=== PATIENT | female | born 1995 | race Caucasian/White ===

== ENCOUNTER 2022-10-20 10:45 | Inpatient (IN) | payer OTHER, SELFPAY ==
[2022-10-20] VITALS (62 sets, daily range): BP systolic 95–121; BP diastolic 59–84; PULSE 67–166; TEMP 36.3–37.5; O2SAT 87–100; BMI 38.6
[2022-10-20 11:07] LABS: ROM Internal Control Test YES-OK TO RESULT pt. (Internal QC); ROM Patient Test Negative (Negative); Record Kit Lot#, ROM+ K1374
[2022-10-20] MEDS: Lactated Ringers 1,000 ML 50 ML IV (11:30)
[2022-10-20 12:04] LABS: Absolute Lymphocyte Count 1.68 X10^3/uL (0.83-4.51); Absolute Neutrophil Count 6.4 X10^3/uL (2.0-7.7); Basophil# 0.02 X10^3/uL; Basophil% 0.2 % (0-1); Hematocrit 34.5 % (37-47); Hemoglobin 11.2 g/dL (12.0-15.0); Lymphocyte # 1.68 X10^3/ul (0.83-4.51); Lymphocyte % 19.5 % (19-41); Mean Corp Hgb Conc 32.5 g/dL (32-36); Mean Corpuscular Hgb 27.1 pg (27.0-32.0); Mean Corpuscular Volume 83.5 fL (81-99); Mean Platelet Vol. 10.3 fl (6.2-12.0); Monocyte# 0.51 X10^3/uL; Monocyte% 5.9 % (0-10); NRBC Flagged by Analyzer 0 % (0-5); Neutrophil # 6.36 X10^3/uL (2.7-7.7); Neutrophil % 73.9 % (47-70); Platelet Count 204 K/mm3 (150-450); RBC Distribution Width CV 13.4 % (11.6-14.6); RBC Distribution Width SD 40.7 fl (35.1-43.9); Red Blood Count 4.13 M/mm3 (4.2-5.4); White Blood Count 8.6 K/mm3 (4.4-11.0)
[2022-10-20 12:41] LABS: Syphilis Antibodies Non-reactive
[2022-10-20 13:22] LABS: HIV - WCH Non-Reactive (Nonreactive); Hepatitis C Antibody Non-Reactive (Nonreactive)
[2022-10-20] MEDS: LACTATED RINGERS 500 ML 999 ML IV (13:45)
[2022-10-20] MEDS: fentaNYL-bupivacaine (epidural) 100 ML BAG EPIDURAL ×2 (15:08→19:41)
--- NOTE | 2022-10-20 16:51 | HP.PCM.OB_ITS ---
History and Physical Date of Admission: 10/20/22 HPI: 27-year-old G1, P0 at 40/0 weeks, MAGDA 10/20/2022 by first trimester ultrasound, admitted in labor. Reports regular contractions. Denies leaking of fluid, vaginal bleeding. Reports movement. Denies headache or vision changes, chest pain or shortness of breath, nausea or vomiting, diarrhea constipation, fevers or chills. complicated by: Class II obesity, rubella nonimmune ADDICTION THERAPIST history: G1 current Medical history: Class II obesity Surgical history: Denies Medications: Iron and vitamin Family history: Noncontributory Allergies: No known drug allergies Social history: Former smoker, denies current tobacco use, alcohol, drug use Review system: Negative otherwise stated above Physical exam: Vitals: General: In no acute distress, now comfortable with epidural HEENT: Normal cephalic/atraumatic Cardiorespiratory: No increased effort Abdomen: Soft, nontender, gravid Cervical exam: 6?7/80/-2, AROM blood-tinged fluid Extremities: Minimal edema Neurologic: No focal deficits, cranial nerves II through XII grossly intact Musculoskeletal moves all extremities equally heart rate:125/mod susan/+accel/no decel [place]: q2-5 Assessment/Plan: 27-year-old G1, P0 at 40/0 weeks, MAGDA 10/20/2022 by first trimester ultrasound, admitted in labor. complicated by: Class II obesity, rubella nonimmune. ?Admit to labor ? Artificial rupture membranes complete. ? Rubella nonimmune. For immunization .
[2022-10-20] MEDS: Lactated Ringers 1,000 ML 200 ML IV (19:39)
[2022-10-20] MEDS: Oxytocin 10 UNITS/ML Vial IM (20:15)
[2022-10-20] MEDS: Oxytocin 15 Units/NS 250ml 15 UNITS/250 ML IV.SOLN 83 UNITS IV (20:15)
--- NOTE | 2022-10-20 20:36 | EX.PCM.OBRPT ---
Maternal Data Information Final MAGDA: 10/20/22 Final MAGDA Source: US <20 weeks Vaginal Delivery Operative Information Date of Procedure: 10/20/22 Pre-Operative Diagnosis: Tiwari intrauterine at term Post-Operative Diagnosis: Tiwari intrauterine at term Surgery / Procedure Performed: Spontaneous Vaginal Delivery Type of Anesthesia: Epidural Estimated Blood Loss: 500cc Findings Description of Procedure: Spontaneous vaginal delivery of viable infant male. No nuchal cord. Baby to mom. Cord clamped and cut. Spontaneous delivery of placenta. Portion of membrane removed on manual extraction and with ring forceps. Confirmed intact placenta. No further membranes or clots noted on bimanual exam. Right labial laceration repaired in the usual fashion. Second-degree laceration repaired in the usual fashion. Hemostatic. A Gender: Male (1 minute): 8 (5 minute): 9 Delayed Cord Clamping: Yes Complication Complications: None
[2022-10-20] MEDS: Lactated Ringers 500 ML IV.SOLN. 1000 ML IV (22:33)
[2022-10-20 23:12] LABS: Absolute Lymphocyte Count 1.08 X10^3/uL (0.83-4.51); Absolute Neutrophil Count 13.7 X10^3/uL (2.0-7.7); Basophil# 0.02 X10^3/uL; Basophil% 0.1 % (0-1); Hematocrit 29.8 % (37-47); Hemoglobin 9.4 g/dL (12.0-15.0); Lymphocyte # 1.08 X10^3/ul (0.83-4.51); Lymphocyte % 6.8 % (19-41); Mean Corp Hgb Conc 31.5 g/dL (32-36); Mean Corpuscular Hgb 26.7 pg (27.0-32.0); Mean Corpuscular Volume 84.7 fL (81-99); Mean Platelet Vol. 9.9 fl (6.2-12.0); Monocyte# 0.96 X10^3/uL; Monocyte% 6.1 % (0-10); NRBC Flagged by Analyzer 0 % (0-5); Neutrophil # 13.69 X10^3/uL (2.7-7.7); Neutrophil % 86.4 % (47-70); Platelet Count 202 K/mm3 (150-450); RBC Distribution Width CV 13.3 % (11.6-14.6); RBC Distribution Width SD 40.7 fl (35.1-43.9); Red Blood Count 3.52 M/mm3 (4.2-5.4); White Blood Count 15.8 K/mm3 (4.4-11.0)
--- NOTE | 2022-10-20 23:48 | NURSING ---
report given to chart RN. that RN to assume care of couplet at this time.
[2022-10-21] VITALS (8 sets, daily range): BP systolic 93–116; BP diastolic 56–73; PULSE 72–125; RESP 14–18; TEMP 36.7–37.1; O2SAT 97–99
[2022-10-21] MEDS: Acetaminophen 500 MG Tablet 1000 MG PO ×3 (03:28→20:59)
--- NOTE | 2022-10-21 12:24 | PN.OBGYN_ITS ---
Subjective Subjective Patient doing well. Lochia minimal. Breast-feeding. Discussed supportive care for perineal laceration. Objective Data Objective Data Vital Signs: Vital Signs Temp Pulse Resp BP Pulse Ox O2 Del Method 98.2 F 96 16 110/73 99 Room Air 10/21/22 11:35 10/21/22 11:35 10/21/22 11:35 10/21/22 11:35 10/21/22 11:35 10/21/22 11:35 Oxygen Delivery Method Room Air Weight: 105.324 kg Body Mass Index (BMI) 38.6 Intake & Output: Intake and Output for Last 24 Hours 10/19/22 10/20/22 10/21/22 23:59 23:59 23:59 Intake Total 2830.00 / 2830.00 Output Total 1150 / 1150 1225 / 1225 Balance 1680.00 / 1680.00 -1225 / -1225 Lab / Micro Data Attestation: I reviewed the patient's lab results. 10/20/22 22:55 Labs: Laboratory Results - last 24 hr 10/20/22 11:30: Syphilis Total Ab Non-reactive, Hepatitis C Antibody Cancelled 10/20/22 11:30: Hepatitis C Antibody Non-Reactive, Hep C Antibody RIBA Cancelled, Hep C RIBA Interpret Cancelled, Hep C Ab Comment Cancelled, HIV 1&2 Antibody Non-Reactive, Blood Type A POSITIVE, Antibody Screen NEGATIVE 10/20/22 22:55: WBC 15.8 H, RBC 3.52 L, Hgb 9.4 L, Hct 29.8 L, MCV 84.7, MCH 26.7 L, MCHC 31.5 L, RDW Std Deviation 40.7, RDW Coeff of Georgette 13.3, Plt Count 202, MPV 9.9, Immature Gran % (Auto) 0.600, Neut % (Auto) 86.4 H, Lymph % (Auto) 6.8 L, [place] % (Auto) 6.1, Eos % (Auto) 0.0, Baso % (Auto) 0.1, Absolute Neuts (auto) 13.7 H, Absolute Lymphs (auto) 1.08, Nucleated RBC % 0 Physical Exam Const alert, oriented x3 and no apparent distress HEENT normocephalic Head and Scalp: atraumatic Neck full ROM Resp normal respiratory effort Cardio regular rate GI normal to inspection, nondistended, normoactive bowel sounds GI Narrative: Uterus 2 cm below umbilicus Back/Spine normal ROM Extremity normal to inspection Extremity Narrative: Minimal pedal edema Neuro no focal motor deficits and no sensory deficits noted Psych mental status grossly normal and affect normal Assessment & Plan (1) Vaginal delivery: PLAN: day 1 status post . Patient had tachycardia last evening after delivery, has resolved. CBC showing acute blood loss anemia secondary to delivery. Can iron supplement on home-going. Breast-feeding. Plan for discharge home tomorrow.
[2022-10-21] MEDS: Senna/Docusate Sodium 1 Tablet PO (21:10)
[2022-10-22 02:32] VITALS: BP 95/57; PULSE 87; RESP 18; TEMP 36.8
[2022-10-22] MEDS: SimETHICONE 80 MG Chewable Tablet PO (05:33)
--- NOTE | 2022-10-22 07:16 | DS.PCM_ITS ---
Discharge Summary Date of Admission: 10/20/22 Date of Discharge: 10/22/22 Summary: Patient arrived on 10/20/2022 in labor and subsequently delivered vaginally on 10/20/2022. Overall routine recovery and discharged home on 10/22/2022 Meaningful Use Info Meaningful Use Diagnoses (Choose all that apply): None applicable Discharge Plan Admission Admit Date/Time: 10/20/22 10:45 Primary Reason for Your Visit: Labor Attending Provider: Vandana Andrade Primary Care Provider: Vivienne Espinoza Primary Instructions Additional Instructions / Restrictions: Regular diet. Okay to shower. Weightbearing as tolerated. No intercourse for 6 to 8 weeks. Call if fevers, chills, chest pain, shortness of breath. Follow- up in 3 to 4 weeks Discharge Orders/Prescriptions Prescriptions: No Action ferrous sulfate 325 mg (65 mg iron) tablet 325 mg PO DAILY PNV cmb#95-ferrous fumarate-FA [ Multivitamins] 28 mg iron- 800 mcg tablet 1 tab PO DAILY omeprazole 20 mg capsule,delayed release(DR/EC) 20 mg PO DAILY Referrals / Follow Up: Care Physician,No Primary [Primary Care Provider] - Disposition Disposition (needs filled in before D/C Order can be placed): Home, Self Care
--- NOTE | 2022-10-22 07:17 | PCM.PN.OB ---
Subjective Subjective No overnight complaints Objective Data Objective Data Vital Signs: Vital Signs Temp Pulse Resp BP Pulse Ox O2 Del Method 98.3 F 87 18 95/57 L 97 Room Air 10/22/22 02:32 10/22/22 02:32 10/22/22 02:32 10/22/22 02:32 10/21/22 21:00 10/22/22 02:32 Oxygen Delivery Method Room Air Weight: 232 lb 3.2 oz Body Mass Index (BMI) 38.6 Intake & Output: Intake and Output for Last 24 Hours 10/20/22 10/21/22 10/22/22 23:59 23:59 23:59 Intake Total 2830.00 / 2830.00 Output Total 1150 / 1150 1225 / 1225 Balance 1680.00 / 1680.00 -1225 / -1225 Lab / Micro Data 10/20/22 22:55 Physical Exam Const alert, oriented x3, no apparent distress, average body habitus, healthy appearing and well nourished HEENT normocephalic and moist oral mucous membranes Eyes PERRL Neck full ROM Resp normal respiratory effort, no retractions and no use of accessory muscles GI GI Narrative: Soft, nontender, uterus firm and below umbilicus Extremity normal to inspection and full ROM Neuro moves all extremities and no focal motor deficits Psych mental status grossly normal, affect normal, speech normal and activity/motor behavior normal Assessment & Plan (1) Vaginal delivery: PLAN: day 2. Breast-feeding. Pain well controlled. Okay to discharge home today
[2022-10-22 10:07] VITALS: BP 121/81; PULSE 107; RESP 16; TEMP 36.8; O2SAT 98
[2022-10-22] MEDS: Acetaminophen 500 MG Tablet 1000 MG PO (10:12)
[2022-10-22 10:30] VITALS: BP 113/73
--- NOTE | 2022-10-22 11:15 | NURSING ---
talked with patient about her non-immune rubella status. MMR is available if she wants it. Pt declines wanting to receive MMR during this stay. Plans to talk with physician at follow up visit
== END 2022-10-22 11:00 | disposition home or self-care (01) | DRG 806 ==
LOC: WPOUT 10:51 → WP 10:58
PROVIDERS: Obstetrics & Gynecology; Admitting Provider Student in an Organized Health Care Education/Training Program; Referring Provider Student in an Organized Health Care Education/Training Program; Visit Provider Student in an Organized Health Care Education/Training Program
DX: O99.214 Obesity complicating childbirth (principal); Z37.0 Single live birth; D62 Acute posthemorrhagic anemia; O90.81 Anemia of the puerperium; Z3A.40 40 weeks gestation of pregnancy; O70.1 Second degree perineal laceration during delivery; Z87.891 Personal history of nicotine dependence
CPT/HCPCS: 59025; 59050; 84112; 85025; 86703; 86780; 86803; 86804; 86850; 86900; 86901; 99221; J7120; G0378

== ENCOUNTER 2023-11-06 20:18 | Inpatient (IN) | payer OTHER, SELFPAY ==
[2023-11-06] VITALS (26 sets, daily range): BP systolic 94–126; BP diastolic 59–81; PULSE 72–100; RESP 14–18; TEMP 36.8; O2SAT 76–100; BMI 39.2
[2023-11-06] MEDS: Lactated Ringers 1,000 ML 999 ML IV (20:20)
--- NOTE | 2023-11-06 20:23 | HP.PCM.OB_ITS ---
HPI - General General Date of Admission: 11/06/23 HPI Narrative SOMMER HORNE, is a 28 F who presents with spontaneous onset of active labor. Maternal Data Information MAGDA Calculator Estimated Delivery Date Method Current WG Current Estimate 11/03/23 Manual 40w 3d PFSH [facility] Medical History (Updated 11/06/23 @ 20:34 by Janett Mccray) Gestational diabetes Cholecystectomy planned Anemia Seizures Home Medications ?Medication ?Instructions ?Recorded ?Last Taken ?Type ferrous sulfate 325 mg (65 mg 325 mg PO DAILY ANEMIA 10/20/22 11/05/23 History iron) tablet vit no.95-ferrous 1 tab PO DAILY 10/20/22 11/06/23 History fumarate 28 mg-folic acid 800 mcg tablet ( Multivitamins) Allergy/AdvReac Type Severity Reaction Status Date / Time No Known Allergies Allergy Verified 11/06/23 20:36 Social History Smoking Status: Former smoker History Elective abortions Hx Para 1 Spontaneous abortions Hx # Term Pregnancies Ectopic pregnancies Hx # Pregnancies Multiple births # of living children NST FHR Rate Baby A Baseline: 150 Variability:: Moderate Accelerations:: 15 x 15 Decelerations:: None NST Reactive:: Yes FHR Category:: Category I Uterine Activity:: TOCO reading every 1-3 minutes ROS Eyes Eyes: Denies blurry vision, change in vision or spots in vision ENT HEENT: Denies dizziness or headache(s) Cardiovascular Cardiovascular: Denies abdominal pain, chest pain or dyspnea Respiratory/Chest Respiratory/Chest: Denies cough, dyspnea, shortness of breath at rest or shortness of breath with exertion Gastrointestinal Gastrointestinal: Denies abdominal pain, diarrhea or vomiting Genitourinary Genitourinary: Denies change in urinary stream, difficulty urinating or dysuria Musculoskeletal Musculoskeletal: Reports none Integumentary Integumentary: Denies rash Neurologic Neurologic: Denies dizziness, headache(s), memory loss or weakness Psychiatric Psychiatric: Reports none Vital Signs Vital Signs Vital Signs: 11/06/23 20:13 11/06/23 20:13 11/06/23 20:14 Pulse Rate 100 99 Blood Pressure 126/80 H BP Systolic 126 BP Diastolic 80 Pulse Ox 11/06/23 20:14 Pulse Rate Blood Pressure BP Systolic BP Diastolic Pulse Ox 99 Weight Weight: 236 lb 1.841 oz Body Mass Index (BMI) 39.2 Physical Exam Const alert, oriented x3 and no apparent distress General Appearance: cooperative Orientation / Consciousness: awake Exam Limitations: no limitations HEENT normocephalic Head and Scalp: normal to inspection Eyes General Eye: normal appearance of both eyes Neck full ROM and no lymphadenopathy Lymph Lymphatic: no lymphadenopathy noted Chest inspection of chest normal Resp normal respiratory effort, normal air movement and clear to auscultation bilaterally Effort and Inspection: able to speak in complete sentences and symmetric chest movement Cardio regular rate and regular rhythm GI normal to inspection, nondistended, normoactive bowel sounds Manual OB Exam: presentation cephalic, dilated 7, effaced 90 and station 0 Amniotic Fluid: clear amniotic fluid Back/Spine normal ROM Extremity full ROM and no calf tenderness Skin no rashes or lesions noted General Skin Exam: no breakdown Neuro oriented x3 and CN's II-XII intact bilaterally Psych mental status grossly normal and thought process normal Labs Labs Labs: Blood Type A POSITIVE Antibody Screen NEGATIVE Hct 29.8 % (37-47) L Hgb 9.4 g/dL (12.0-15.0) L Syphilis Total Ab Non-reactive Hepatitis C Antibody Non-Reactive (Nonreactive) HIV 1&2 Antibody Non-Reactive (Nonreactive) Rhogam given: No Assessment & Plan (1) 40 weeks gestation of : (2) Spontaneous onset of labor: (3) Active labor at term: (4) GDM (gestational diabetes mellitus), class A1: (5) Rubella non-immune status, antepartum: (6) Anemia affecting in third trimester: PLAN: Plan CE - bulging bag Admit to labor and delivery Routine labs GBS negative Epidural when possible Anticipate Dr. Can notified of admission and is collaborating physician
[2023-11-06] MEDS: Lactated Ringers 1,000 ML 200 ML IV ×2 (20:41→22:14)
[2023-11-06 20:51] LABS: Bedside Glucose 78 mg/dL (74-106)
[2023-11-06 20:59] LABS: Absolute Lymphocyte Count 1.88 X10^3/uL (0.83-4.51); Absolute Neutrophil Count 7.7 X10^3/uL (2.0-7.7); Basophil# 0.03 X10^3/uL; Basophil% 0.3 % (0-1); Hematocrit 37.1 % (37-47); Hemoglobin 12.2 g/dL (12.0-15.0); Lymphocyte # 1.88 X10^3/ul (0.83-4.51); Lymphocyte % 18.2 % (19-41); Mean Corp Hgb Conc 32.9 g/dL (32-36); Mean Corpuscular Hgb 27.7 pg (27.0-32.0); Mean Corpuscular Volume 84.3 fL (81-99); Mean Platelet Vol. 10.1 fl (6.2-12.0); Monocyte# 0.65 X10^3/uL; Monocyte% 6.3 % (0-10); NRBC Flagged by Analyzer 0 % (0-5); Neutrophil % 74.6 % (47-70); Platelet Count 190 K/mm3 (150-450); RBC Distribution Width SD 49.6 fl (35.1-43.9); White Blood Count 10.3 K/mm3 (4.4-11.0)
[2023-11-06] MEDS: fentaNYL-bupivacaine (epidural) 100 ML BAG EPIDURAL (20:59)
[2023-11-06 21:39] LABS: Bedside Glucose 92 mg/dL (74-106)
[2023-11-06 21:52] LABS: Syphilis Antibodies Non-reactive
--- NOTE | 2023-11-06 22:36 | EX.PCM.OBRPT ---
Assessment & Plan (1) Anemia affecting in third trimester: (2) Rubella non-immune status, antepartum: (3) GDM (gestational diabetes mellitus), class A1: (4) Vaginal delivery: (5) Perineal laceration, second degree, delivered: (6) Precipitous delivery: Maternal Data Information MAGDA Calculator Estimated Delivery Date Method Current WG Current Estimate 11/03/23 Manual 40w 3d Vaginal Delivery Maternal Presentation Maternal Presentation: Active Labor Maternal Presentation: at 40.3 weeks gestation that presented in spontaneous, active labor. Type of Induction: Amniotomy (Augmentation) Operative Information Pre-Operative Diagnosis: Term gestation, spontaneous active labor Post-Operative Diagnosis: , Live female Surgery / Procedure Performed: Spontaneous Vaginal Delivery Type of Anesthesia: Epidural Estimated Blood Loss: 300 Time of Delivery: 22:51 Findings Description of Procedure: Patient quickly progressed to complete dilation. With good maternal effort, head delivered followed by anterior shoulder and remainder of infant body without any force, delay or traction. Vigorous {female } was delivered atraumatically and placed on maternal abdomen. Pitocin IV started for active management of the third stage of labor. 3 vessel cord clamped and cut after delay and placed immediately skin to skin with patient. Placenta delivered spontaneously and intact. After inspection, it was noted there was second degree laceration which was repaired in usual fashion using 3-0 Vicryl Rapid. Hemostasis obtained. Vaginal sweep performed. Several large clots expressed. Fundus is firm and bleeding hemostatic. Patient and bonding well at this time. Dr. Can notified of delivery. Routine post orders placed. Presentation: Vertex Amniotic Membrane Rupture Type: Artificial Time of Membrane Rupture: 2131 Amniotic Fluid Description: Moderate meconium Placental Delivery Description: Spontaneous Placenta Disposition: [facility] Cord Vessel Description: 3 Vessels Cord Entanglement: None A Gender: Female (1 minute): 8 (5 minute): 9 Delayed Cord Clamping: Yes Post Vaginal Delivery Medications Given After Delivery: IV Pitocin Episiotomy Description: None Laceration: 2nd degree Complication Complications: None
[2023-11-06 22:46] LABS: Bedside Glucose 82 mg/dL (74-106)
[2023-11-06] MEDS: Oxytocin 15 Units/NS 250ml 15 UNITS/250 ML IV.SOLN 334 UNITS IV (22:53)
[2023-11-06] MEDS: Oxytocin 15 Units/NS 250ml 15 UNITS/250 ML IV.SOLN 83 UNITS IV (23:23)
[2023-11-06] MEDS: Acetaminophen 500 MG Tablet PO (23:40)
[2023-11-07] VITALS (16 sets, daily range): BP systolic 99–124; BP diastolic 56–77; PULSE 60–87; RESP 14–18; TEMP 36.6–37.1; O2SAT 98–99
[2023-11-07 00:16] LABS: Bedside Glucose 88 mg/dL (74-106)
[2023-11-07 06:20] LABS: Bedside Glucose 75 mg/dL (74-106)
--- NOTE | 2023-11-07 08:21 | DCINST_ITS ---
Discharge Instructions Diet Discharge Diet: No restrictions Activity Discharge Activity: Return to Normal Activity, No Restrictions, May Drive, May Shower and May Take a Tub Bath (Warm water only. No bath salts, soaps, bubbles) May resume sexual activity in: 6-8 weeks Weight Bearing Status: Weight bearing as tolerated Dressing / Incision Call your doctor if you observe: Fever of 101 or Higher, Inability to urinate, Using more than 1 pad per hour, Shortness of breath, Dizziness, Chest pain, Calf discomfort and Uncontrolled pain Follow Up Care Please Follow Up With: [facility] Alek MEI When: 2 weeks in office or virtual Test Results: Test results from this visit will be discussed in further detail at your follow- up appointment, if applicable. Discharge Plan Admission Admit Date/Time: 11/06/23 20:18 Primary Reason for Your Visit: Labor and Delivery Attending Provider: Latonia Bahena Primary Care Provider: Care Physician,No Primary Discharge Orders/Prescriptions Prescriptions: Continued ferrous sulfate 325 mg (65 mg iron) tablet 325 mg PO DAILY PNV cmb#95-ferrous fumarate-FA [ Multivitamins] 28 mg iron- 800 mcg tablet 1 tab PO DAILY Referrals / Follow Up: Latonia Bahena CNM [Med Staff - Adv Practice Prof] - Care Physician,No Primary [Primary Care Provider] - Disposition Disposition (needs filled in before D/C Order can be placed): Home, Self Care
[2023-11-07] MEDS: Acetaminophen 500 MG Tablet 1000 MG PO (14:36)
[2023-11-07] MEDS: SimETHICONE 80 MG Chewable Tablet PO (15:10)
--- NOTE | 2023-11-07 22:33 | PCM.PN.CNM ---
Subjective Subjective Patient seen at bedside. Denies any pain. Ambulating and voiding without difficulty. Lochia decreasing. Objective Data Objective Data Vital Signs: Vital Signs Temp Pulse Resp BP Pulse Ox O2 Del Method 98.0 F 80 16 124/77 H 98 Room Air 11/07/23 19:57 11/07/23 19:57 11/07/23 19:57 11/07/23 19:57 11/07/23 19:57 11/07/23 19:57 Oxygen Delivery Method Room Air Weight: 236 lb 1.841 oz Body Mass Index (BMI) 39.2 Intake & Output: Intake and Output for Last 24 Hours 11/05/23 11/06/23 11/07/23 23:59 23:59 23:59 Intake Total 1600.33 / 1600.33 250 / 250 Output Total 500 / 500 200 / 200 Balance 1100.33 / 1100.33 50 / 50 Lab / Micro Data Attestation: I reviewed the patient's lab results. 11/06/23 20:20 Labs: Laboratory Results - last 24 hr 11/06/23 22:25: POC Glucose 82 11/06/23 23:49: POC Glucose 88 11/07/23 05:58: POC Glucose 75 ROS Eyes Eyes: Denies blurry vision, change in vision or spots in vision ENT HEENT: Denies dizziness or headache(s) Cardiovascular Cardiovascular: Denies abdominal pain, chest pain or dyspnea Respiratory/Chest Respiratory/Chest: Denies cough, dyspnea, shortness of breath at rest or shortness of breath with exertion Gastrointestinal Gastrointestinal: Denies abdominal pain, diarrhea or vomiting Genitourinary Genitourinary: Denies change in urinary stream, difficulty urinating or dysuria Musculoskeletal Musculoskeletal: Reports none Integumentary Integumentary: Denies rash Neurologic Neurologic: Denies dizziness, headache(s), memory loss or weakness Physical Exam Const alert and no apparent distress General Appearance: cooperative and comfortable Exam Limitations: no limitations HEENT normocephalic Eyes General Eye: normal appearance of both eyes Neck full ROM General: normal visual inspection Chest Chest: symmetrical chest wall rise Resp normal respiratory effort and normal air movement Effort and Inspection: symmetric chest movement Auscultation: clear to auscultation bilaterally Cardio regular rate and regular rhythm GI normal to inspection, nondistended, normoactive bowel sounds Back/Spine normal ROM Extremity full ROM and no calf tenderness General Extremity: normal exam except as noted Skin no rashes or lesions noted Neuro oriented x3 Speech: speech normal Psych mental status grossly normal Thought Process: normal thought process Assessment & Plan (1) Precipitous delivery: (2) Perineal laceration, second degree, delivered: (3) Vaginal delivery: PLAN: Plan PPD 1 Routine care support Increase ambulation
[2023-11-08 02:33] VITALS: BP 123/86; PULSE 58; RESP 16; TEMP 36.8; O2SAT 99
[2023-11-08] MEDS: SimETHICONE 80 MG Chewable Tablet PO (02:58)
--- NOTE | 2023-11-08 09:06 | DS.PCM_ITS ---
Providers Date of Admission: 11/06/23 Primary Care Physician: Vivienne Primary Care Phys Reason For Visit: VAGINAL Diagnosis Discharge Diagnosis (1) Precipitous delivery: Status: Acute Code(s): O62.3 - Precipitate labor (2) Perineal laceration, second degree, delivered: Status: Acute Code(s): O70.1 - Second degree perineal laceration during delivery (3) Vaginal delivery: Status: Acute Code(s): O80 - Encounter for full-term uncomplicated delivery Plan PPD 2 Routine care Formula feeding Desires discharge home Medications at Discharge Home Medications ferrous sulfate 325 mg (65 mg iron) tablet 325 mg PO DAILY ANEMIA 10/20/22 vit no.95-ferrous fumarate 28 mg-folic acid 800 mcg tablet ( Multivitamins) 1 tab PO DAILY 10/20/22 Weight / BMI Weight Weight: 236 lb 1.841 oz Body Mass Index (BMI) 39.2 ABG / Lab / Microbiology Data 11/06/23 20:20 D/C Instructions Discharge Diet: No restrictions May resume sexual activity in: 6-8 weeks Weight Bearing Status: Weight bearing as tolerated Call your doctor if you observe: Fever of 101 or Higher, Inability to urinate, Using more than 1 pad per hour, Shortness of breath, Dizziness, Chest pain, Calf discomfort and Uncontrolled pain Please Follow Up With: [facility] Alek MEI When: 2 weeks in office or virtual Meaningful Use Info Meaningful Use Meaningful Use Diagnoses (Choose all that apply): None applicable Ischemic Stroke Statin Dosing Therapy Reference: STATIN DOSE THERAPY REFERENCE: * Patients > 75 years receive moderate or high dose statin therapy. * Patients 75 years or YOUNGER should receive HIGH intensity statin dose unless contraindicated. You will be required to document reason for non-treatment if statin daily dose does not meet guidelines. HIGH DOSE STATIN THERAPY DAILY Atorvastatin > than or = to 40 mg Rosuvastatin > than or = to 20 mg Amlodipine + Atorvastatin > than or = to 2.5/40 mg Ezetimibe + Simvastatin 10/80 mg Simvastatin 80mg Discharge Plan Admission Admit Date/Time: 11/06/23 20:18 Primary Reason for Your Visit: Labor and Delivery Attending Provider: Latonia Bahena Primary Care Provider: Care Physician,No Primary Discharge Orders/Prescriptions Prescriptions: Continued ferrous sulfate 325 mg (65 mg iron) tablet 325 mg PO DAILY PNV cmb#95-ferrous fumarate-FA [ Multivitamins] 28 mg iron- 800 mcg tablet 1 tab PO DAILY Referrals / Follow Up: Latonia Bahena CNM [Med Staff - [facility] Practice Prof] - Care Physician,No Primary [Primary Care Provider] - Disposition Disposition (needs filled in before D/C Order can be placed): Home, Self Care
[2023-11-08 09:26] VITALS: BP 110/79; PULSE 65; RESP 16; TEMP 36.6; O2SAT 98
[2023-11-08] MEDS: Acetaminophen 500 MG Tablet 1000 MG PO (09:44)
[2023-11-08] MEDS: Senna/Docusate Sodium 1 Tablet PO (09:44)
== END 2023-11-08 11:35 | disposition home or self-care (01) | DRG 807 ==
LOC: WPOUT 20:19 → WP 20:19
PROVIDERS: Admitting Provider Advanced Practice Midwife; Referring Provider Advanced Practice Midwife; Visit Provider Advanced Practice Midwife
DX: O24.420 Gestational diabetes mellitus in childbirth, diet controlled (principal); Z37.0 Single live birth; O62.3 Precipitate labor; O70.1 Second degree perineal laceration during delivery; O99.02 Anemia complicating childbirth; O77.0 Labor and delivery complicated by meconium in amniotic fluid; Z3A.40 40 weeks gestation of pregnancy; Z87.891 Personal history of nicotine dependence
CPT/HCPCS: 59025; 59050; 82962; 85025; 86780; 86850; 86900; 86901; 99221; J7120; G0378